=== PATIENT | male | born 1975 | race Caucasian/White ===

== ENCOUNTER 2017-05-12 14:26 | Emergency (ER) | payer OTHER ==
[~2017-05-12 14:26] MED LIST: ACETAMINOPHEN PO; ATARAX PO; DIVALPROEX SOD500 MG PO; HYDROCODON-ACE1 EACH PO; HYDROCODONE-A1 UDTA1 PO; IBUPROFEN PO; NEURONTIN300 MG PO; NORCO 5/325 TAB1 TAB PO; PERCOCET5/325 PO; RISPERDAL2 MG PO; THORAZINE100 MG PO; VOLTAREN75 MG PO
[2017-05-12] MEDS ORDERED: RISPERDAL PO (14:29)
[2017-05-12] MEDS ORDERED: BENZTROPINE PO (14:29)
[2017-05-12] MEDS ORDERED: LITHIUM PO (14:30)
[2017-05-12] MEDS ORDERED: SEROQUEL PO (14:30)
[2017-05-12] MEDS ORDERED: ADDERALL XR PO (14:30)
== END 2017-05-12 15:13 | disposition home or self-care (01) ==
LOC: SED 14:26
DX: Z76.0 Encounter for issue of repeat prescription (principal); J45.909 Unspecified asthma, uncomplicated; F20.9 Schizophrenia, unspecified; F31.9 Bipolar disorder, unspecified; Z98.890 Other specified postprocedural states; Z79.899 Other long term (current) drug therapy; Z88.0 Allergy status to penicillin; Z88.2 Allergy status to sulfonamides; Z88.5 Allergy status to narcotic agent; Z88.8 Allergy status to other drugs, medicaments and biological substances
CPT/HCPCS: 99281